=== PATIENT | female | born 1960 | race Caucasian/White ===

== ENCOUNTER → 2024-09-03 | Outpatient (CLI) | payer MEDICARE ==
--- NOTE | 2024-09-03 17:35 | MM ---
Reason for Exam: Screening (asymptomatic). Patient History: Menarche at age 13. First Full-Term at age 18. Left ovary removed at age 35. Right ovary removed at age 35. Hysterectomy at age 35. Postmenopausal. Maternal aunt had breast cancer. Maternal grandmother had breast cancer. Paternal cousin had breast cancer. Paternal cousin had breast cancer. Sister had breast cancer. Risk Values: Carmen 5 year model risk: 3.0%. NCI Lifetime model risk: 11.8%. Prior Study Comparison: No prior studies available for comparison. Tissue Density: There are scattered areas of fibroglandular density. Findings: Analyzed By CAD. No significant mass, suspicious microcalcification, or other discrete abnormality is seen. A few benign round calcifications are noted. Overall Assessment: Benign, BI-RAD 2 Management: Screening Mammogram of both breasts in 1 year. See note below in regards to the patient's increased 5 year Carmen score. Patient should continue monthly self-breast exams. A clinical breast exam by your physician is recommended on an annual basis. This exam should not preclude additional follow-up of suspicious palpable abnormalities. Note on Carmen scores and lifetime risk: 1. A Carmen score greater than 3% is considered moderate risk. If this is the case, consider specialist referral to assess eligibility for a risk reducing agent. 2. If overall lifetime risk for the development of breast cancer is 20% or higher, the patient may qualify for future screening with alternating mammogram and breast MRI. [facility], , 09/03/2024 5:31 PM. Electronically signed and approved by: Juani Clark M.D. Radiologist
== END | disposition home or self-care (01) ==
LOC: RADMAMWWP 14:39
PROVIDERS: ATTEND Pediatrics
DX: Z12.31 Encounter for screening mammogram for malignant neoplasm of breast (principal); R92.323 Mammographic fibroglandular density, bilateral breasts; R92.1 Mammographic calcification found on diagnostic imaging of breast; Z78.0 Asymptomatic menopausal state; Z80.3 Family history of malignant neoplasm of breast
CPT/HCPCS: 77063; 77067

== ENCOUNTER → 2024-09-22 | Outpatient (CLI) | payer MEDICARE ==
--- NOTE | 2024-09-22 15:33 | CTL ---
EXAMINATION TYPE: CT Low Dose Lung DATE OF EXAM: 09/22/2024 10:43 AM COMPARISON: None. CLINICAL INDICATION: Female, 64 years old with history of Z12.2 SCREENING LUNG CA Z87.891 FORMER SMOK ER, QUIT SMOKING 38 DAYS AGO, PREVIOUSLY SMOKED 1 PACK A DAY FOR 30 YEARS, History of tobacco use. TECHNIQUE: Low dose computed tomography scan was performed through the chest at 1 mm thick sections a nd reconstructed images in multiple planes at 1 mm and [address] DLP: 70.9 mGycm, CT CTDI: 2.4 mGy, Automated exposure control for dose reduction was used. CT DIAGNOSTIC QUALITY: Satisfactory FINDINGS: Heart normal size without pericardial. Extensive LAD and less of the RCA coronary artery calcificatio ns are present. Ectatic ascending aorta 3.7 cm. Mild atherosclerotic arch calcifications. Conventional arch vessel br anching anatomy. A few scattered prominent mediastinal lymph nodes are present measuring up to 6 mm. No thoracic lymph adenopathy by CT size criteria. Mild diffuse bronchial wall thickening. [id number] emphysematous change. Some scattered subpleu ral interstitial changes may reflect mild scattered fibrosis. No consolidation or pleural effusion. Tiny calcified granuloma periphery of the right base. Otherwise, couple tiny 3 mm nodules are noted a lso at the right base. No suspicious pulmonary nodules are identified. Tiny hiatal hernia. Visualized upper abdomen otherwise shows cholecystectomy clips. Bones: DISH lower thoracic spine. No osseous destructive process. IMPRESSION: 1. Lung RADS 2, benign. A couple tiny 3 mm pulmonary nodules on baseline screening. 2. COPD with mild to moderate emphysema. Recommend smoking cessation. 3. Coronary artery calcifications, extensive in the LAD. 4. Tiny hiatal hernia. CT LUNG RAD AND CT CHEST RECOMMENDATION: Lung-Rad 2 Benign Appearance or Behavior: Continue annual sc reening with LDCT in 12 months. S Modifier (other clinically significant findings): None [facility], , 09/22/2024 3:31 PM
== END | disposition home or self-care (01) ==
LOC: RADCTMAIN 10:09
PROVIDERS: ATTEND Pediatrics
DX: Z12.2 Encounter for screening for malignant neoplasm of respiratory organs (principal); F17.210 Nicotine dependence, cigarettes, uncomplicated; R91.8 Other nonspecific abnormal finding of lung field; J44.9 Chronic obstructive pulmonary disease, unspecified; I25.10 Atherosclerotic heart disease of native coronary artery without angina pectoris; K44.9 Diaphragmatic hernia without obstruction or gangrene; J43.9 Emphysema, unspecified
CPT/HCPCS: 71271

== ENCOUNTER → 2024-09-28 | Outpatient (CLI) | payer MEDICARE ==
--- NOTE | 2024-09-28 17:26 | CA ---
Transthoracic Echo Report Name: Cassie Beltran Age: 64 Gender: F : 1960 Exam Date: 09/28/2024 13:51 Exam Location: [place] [facility] Ht (in): 62 Wt (lb): 185 Ordering Physician: Juan Diego Roberson MD Attending/Referring Phys: Mary [place] [employer] Machine Mechanic Rosita Camacho RDCS Procedure CPT: Indications: R94.31 ABNORMAL ELECTROCARDIOGRAM [ECG] [EKG] Cardiac Hx: Technical Quality: Fair Contrast 1: Total Dose (mL): Contrast 2: Total Dose (mL): MEASUREMENTS (Male / Female) Normal Values 2D ECHO LV Diastolic Diameter PLAX 3.3 cm 4.2 - 5.9 / 3.9 - 5.3 cm LV Systolic Diameter PLAX 2.1 cm IVS Diastolic Thickness 1.2 cm 0.6 - 1.0 / 0.6 - 0.9 cm LVPW Diastolic Thickness 0.7 cm 0.6 - 1.0 / 0.6 - 0.9 cm LV Relative Wall Thickness 0.6 RV Internal Dim ED PLAX 2.8 cm LVOT Diameter 1.9 cm LV Diastolic Volume MOD BP 93.7 cm??? 67 - 155 / 56 - 104 cm??? LV Systolic Volume MOD BP 42.6 cm??? - / 19 - 49 cm??? LV Ejection Fraction MOD BP 54.6 % >= 55 % LV Cardiac Index MOD BP 1728.1 cm???/min???m??? LV Diastolic Volume MOD 4C 95.4 cm??? LV Systolic Volume MOD 4C 43.4 cm??? LV Ejection Fraction MOD 4C 54.5 % LV Cardiac Index MOD 4C 1757.3 cm???/min???m??? LV Diastolic Length 4C 8.1 cm LV Systolic Length 4C 6.9 cm LV Diastolic Volume MOD 2C 87.8 cm??? LV Systolic Volume MOD 2C 38.9 cm??? LV Ejection Fraction MOD 2C 55.7 % LV Cardiac Index MOD 2C 1651.6 cm???/min???m??? LV Diastolic Length 2C 8.6 cm LV Systolic Length 2C 7.5 cm LA Volume 37.7 cm??? 18 - 58 / 22 - 52 cm??? LA Volume Index 19.3 cm???/m??? 16 - 28 cm???/m??? M-MODE Aortic Root Diameter MM 2.7 cm LA Systolic Diameter MM 3.0 cm LA Ao Ratio MM 1.1 AV Cusp Separation MM 1.9 cm DOPPLER AV Peak Velocity 137.3 cm/s AV Peak Gradient 7.5 mmHg AV Mean Velocity 86.4 cm/s AV Mean Gradient 3.4 mmHg AV Velocity Time Integral 23.7 cm LVOT Peak Velocity 110.1 cm/s LVOT Peak Gradient 4.8 mmHg LVOT Velocity Time Integral 20.2 cm LVOT Stroke Volume 59.1 cm??? LVOT Stroke Volume Index 31.9 ml/m??? LVOT Cardiac Index 1996.1 cm???/min???m??? AV Area Cont Eq vti 2.5 cm??? AV Area Cont Eq pk 2.3 cm??? MV Area PHT 5.0 cm??? Mitral E Point Velocity 32.2 cm/s Mitral A Point Velocity 67.0 cm/s Mitral E to A Ratio 0.5 MV Deceleration Time 152.0 ms TR Peak Velocity 203.2 cm/s TR Peak Gradient 16.5 mmHg PV Peak Velocity 62.8 cm/s PV Peak Gradient 1.6 mmHg FINDINGS Left Ventricle Left ventricular ejection fraction is estimated at 55-60%. Mildly increased septal wall thickness. Normal left ventricular systolic function with no obvious regional wall motion abnormalities. Left ventricular cavity size normal. Right Ventricle Normal right ventricular size and function. Right ventricular systolic pressure within normal limits. Right Atrium Normal right atrial size. Left Atrium Mild left atrial dilatation. Mitral Valve Structurally normal mitral valve. Trace to mild mitral regurgitation. No mitral stenosis. Aortic Valve Trileaflet aortic valve. No aortic stenosis. Trace aortic regurgitation. Tricuspid Valve Structurally normal tricuspid valve. Trace tricuspid regurgitation. No tricuspid stenosis. Pulmonic Valve Structurally normal pulmonic valve. Trace pulmonic regurgitation. No pulmonic stenosis. Pericardium No pericardial or pleural effusion. Aorta Normal size aortic root and proximal ascending aorta. CONCLUSIONS Normal LV size and systolic function with mild concentric LVH. Minimal mitral and tricuspid regurgitation. No significant pulmonary hypertension. No pericardial effusion Previewed by: Dr. Mamie Knox MD (Electronically Signed) Final Date: 28 Sep 2024 17:25
== END | disposition home or self-care (01) ==
LOC: RADECHMAIN 13:47
PROVIDERS: ATTEND Pediatrics
DX: I08.1 Rheumatic disorders of both mitral and tricuspid valves (principal); R94.31 Abnormal electrocardiogram [ECG] [EKG]
CPT/HCPCS: 93306